=== PATIENT | female | born 1970 | race Caucasian/White ===

== ENCOUNTER 2018-02-23 17:40 | Emergency (ER) | payer MEDICARE, OTHER ==
[2018-02-23 18:30] LABS: Basophils % (A) 1 %; Eosinophils # (A) 0.2 k/uL (0-0.7); Eosinophils % (A) 3 %; HCT 45.5 % (34.0-46.0); HGB 15.2 gm/dL (11.4-16.0); Lymphocytes # (A) 2.2 k/uL (1.0-4.8); Lymphocytes % (A) 31 %; MCH 29.7 pg (25.0-35.0); MCHC 33.5 g/dL (31.0-37.0); MCV 88.8 fL (80.0-100.0); Mean Platelet Volume 7.5; Monocytes # (A) 0.3 k/uL (0-1.0); Monocytes % (A) 4 %; Neutrophils # (A) 4.3 k/uL (1.3-7.7); Neutrophils % (A) 60 %; Platelet Count 266 k/uL (150-450); RBC 5.13 m/uL (3.80-5.40); RDW 13.7 % (11.5-15.5); WBC 7.1 k/uL (3.8-10.6)
[2018-02-23 18:43] LABS: Albumin 4.4 g/dL (3.5-5.0); Calcium 10.1 mg/dL (8.4-10.2); Potassium 4.7 mmol/L (3.5-5.1); Total Bilirubin 0.6 mg/dL (0.2-1.3); Total Protein 7.7 g/dL (6.3-8.2)
[2018-02-23 18:46] LABS: INR 1.1 (<1.2); Partial Thromboplastin Time 23.6 sec (22.0-30.0); Prothrombin Time 10.4 sec (9.0-12.0)
--- NOTE | 2018-02-23 18:46 | XR ---
EXAMINATION TYPE: XR chest 2V DATE OF EXAM: 02/23/2018 COMPARISON: NONE HISTORY: Chest pain into left arm. TECHNIQUE: Frontal and lateral views of the chest are obtained. FINDINGS: Overlying EKG leads are seen. There is no focal air space opacity, pleural effusion, or pn eumothorax seen. The cardiac silhouette size is within normal limits. The osseous structures are i ntact. IMPRESSION: No acute cardiopulmonary process.
[2018-02-23 18:49] LABS: Creatine Kinase 37 U/L (30-135)
[2018-02-23 19:02] LABS: Creatine Kinase MB 0.3 ng/mL (0.0-2.4); Troponin I <0.012 ng/mL (0.000-0.034)
[2018-02-23] MEDS ORDERED: ASPIRIN 81 MG PO STA (19:02)
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
[2018-02-23] MEDS: LORazepam 2 MG/ML INJ IV STA ×2 (19:11→21:23)
[2018-02-23 22:48] VITALS: BP 117/79; PULSE 74; RESP 20; TEMP 98
== END 2018-02-23 22:48 | disposition home or self-care (01) ==
LOC: EC 17:40
DX: R07.89 Other chest pain (principal); E87.2 Acidosis; F41.9 Anxiety disorder, unspecified; M25.512 Pain in left shoulder; K21.9 Gastro-esophageal reflux disease without esophagitis; F32.9 Major depressive disorder, single episode, unspecified; F90.9 Attention-deficit hyperactivity disorder, unspecified type; Z79.899 Other long term (current) drug therapy; Z88.0 Allergy status to penicillin
CPT/HCPCS: 36415; 93005; 80053; 82550; 82553; 83735; 84484; 85025; 85610; 85730; 71046; 99285; 96374; J2060

== ENCOUNTER → 2018-03-28 | Outpatient (CLI) | payer MEDICARE ==
--- NOTE | 2018-03-28 11:57 | MM ---
Reason for exam: additional evaluation requested from prior study. Last mammogram was performed 2 years ago. History: Saline implants in both breasts, 1995. Physical Findings: Nurse did not find any significant physical abnormalities on exam. MG 3D Diag Mammo Imp W/Cad MIGUEL Bilateral CC and MLO view(s) were taken. Prior study comparison: April 07, 2016, bilateral MG diag mamm implants MIGUEL w CAD. September 16, 2014, bilateral MG diagnostic mammo w CAD MIGUEL. There are scattered fibroglandular densities. There is no discrete abnormality. Bilateral subpectoral implants. These results were verbally communicated with the patient and result sheet given to the patient on 03/28/18. ASSESSMENT: Incomplete: need additional imaging evaluation, BI-RAD 0 RECOMMENDATION: Ultrasound of the left breast.
--- NOTE | 2018-03-28 11:59 | USB ---
Reason for exam: clinical finding. History: Saline implants in both breasts, 1995. US Breast LT Left complete breast ultrasound includes all four quadrants, the retroareolar region and axilla. Finding demonstrates a 3 x 2 x 3mm oval lesion too small to characterize at 3 o'clock and a 4 x 4 x 3mm round, hyperechoic lesion too small to characterize at 8 o'clock. These results were verbally communicated with the patient and result sheet given to the patient on 03/28/18. ASSESSMENT: Benign, BI-RAD 2 RECOMMENDATION: Routine screening mammogram of both breasts in 1 year. Manage on a clinical basis with regard to pain.
== END | disposition home or self-care (01) ==
LOC: RADMAMWWP 08:09
PROVIDERS: ATTEND Internal Medicine
DX: N64.4 Mastodynia (principal)
CPT/HCPCS: 77066; 76641; G0279; 77062